=== PATIENT | female | born 1960 | race Caucasian/White ===

== ENCOUNTER 2018-12-10 21:34 | Inpatient (IN) | payer OTHER ==
[~2018-12-10] VITALS: Ht 162.6 cm; Wt 82.3 kg
--- NOTE | 2018-12-10 21:58 | NUR ---
MS/RN OPENING NOTES YASMIN JONAS OUTPATIENT SURGERY RN AT BEDSIDE FOR ASSESSMENT
[2018-12-10 22:00] VITALS: BP 155/87
--- NOTE | 2018-12-10 22:00 | NUR ---
MS/RN OPENING NOTES PT RECEIVED, DIRECT ADMIT FROM [facility]. A/OX4. ON ROOM AIR, BREATHING EVEN AND UNLABORED. DENIES SOB AND PAIN AT THIS TIME. IV TO RAC PATENT AND INTACT. BELONGINGS LIST COMPLETED. DENIES HOME MEDS. ORIENTED PT TO ROOM AND CALL LIGHT. BED IN LOW/LOCKED POSITION WITH CALL LIGHT IN REACH. BILATERAL UPPER SIDE RAILS IN PLACE. WILL CONTINUE TO MONITOR
[2018-12-10] MEDS ORDERED: ACETAMINOPHEN 325 MG TABLET PO PRN (22:30)
[2018-12-10] MEDS ORDERED: MAG HYDROX/AL HYDROX/SIMETH 30 ML UDC PO PRN (22:30)
[2018-12-10] MEDS ORDERED: DEXTROSE 50%-WATER 50 ML DISP.SYRIN IV PRN (22:30)
[2018-12-10] MEDS ORDERED: HYDROCODONE/APAP 10/325MG 1 EA TABLET PO PRN (22:30)
[2018-12-10] MEDS ORDERED: ONDANSETRON HCL/PF 4 MG/2 ML VIAL IVP PRN (22:30)
[2018-12-10] MEDS ORDERED: TEMAZEPAM 15 MG CAPSULE PO PRN (22:30)
[2018-12-10] MEDS ORDERED: HYDROCODONE/APAP 5/325MG 1 EACH TABLET PO PRN (22:30)
[2018-12-10] MEDS ORDERED: MAGNESIUM HYDROXIDE 30 ML UDC PO PRN (22:30)
--- NOTE | 2018-12-11 00:22 | NUR ---
MS/RN NOTES SPOKE TO JOSE M FROM [facility] TO CLARIFY SCHEDULED 0100 1GM VANCOMYCIN ORDER. INFORMED PHARMACY THAT PT RECEIVED 0.75GM AT 1604 ON 12/10/18 AT [facility]. REVIEWED BUN/CR. PER PHARMACY, OKAY TO GIVE SCHEDULED 0100 1GM VANCO DOSE
[2018-12-11] MEDS ORDERED: VANCOMYCIN 1 GM VIAL ONE (00:55)
[2018-12-11] MEDS ORDERED: VANCOMYCIN 1 GM in IV D5W 250ml IV SCH (01:00)
[2018-12-11] MEDS: IV NS 0.9% 1,000 ML IV PRN (01:04)
[2018-12-11 06:32] LABS: BASOPHILS % (AUTO) 0.7 % (0.0-2.0); EOSINOPHILS % (AUTO) 1.6 % (0.0-6.0); HEMATOCRIT 38 % (33-45); LYMPHOCYTES # (AUTO) 1.9 /CMM (0.8-4.8); LYMPHOCYTES % (AUTO) 39.8 % (20.0-44.0); MEAN CORPUSCULAR HGB CONC 34 g/dl (31.0-36.0); MEAN CORPUSCULAR VOLUME 83 fL (82-100); MONOCYTES # (AUTO) 0.5 /CMM (0.1-1.30); MONOCYTES % (AUTO) 11.7 % (2.0-12.0); NEUTROPHILS # (AUTO) 2.2 /CMM (1.8-8.9); NEUTROPHILS % (AUTO) 46.2 % (43.0-81.0); PLATELET COUNT (AUTO) 285 /CMM (150-450); RED BLOOD CELL COUNT(AUTO) 4.63 MIL/uL (4.0-5.2); WHITE BLOOD COUNT (AUTO) 4.7 K/uL (4.3-11.0)
[2018-12-11 06:41] LABS: CALCIUM, SERUM 8.7 mg/dL (8.5-10.1); CREATININE 0.5 mg/dL (0.6-1.3); MAGNESIUM 1.8 mg/dL (1.8-2.4); PHOSPHORUS 3.5 mg/dL (2.5-4.9); POTASSIUM 3.8 mmol/L (3.5-5.1)
[2018-12-11] MEDS: BLOOD SUGAR DIAGNOSTIC 1 EACH STRIP IN SCH ×2 (06:57→11:58)
[2018-12-11] MEDS ORDERED: FEE PK DOSING 1 MIN EA MC ONE (07:08)
[2018-12-11] MEDS: INSULIN REGULAR, HUMAN 100 UNIT/ML 3 ML VIAL SQ PRN ×3 (07:14→17:34)
[2018-12-11] MEDS: PANTOPRAZOLE 40 MG TABLET.DR PO SCH (07:30)
[2018-12-11] MEDS ORDERED: IBUP-1492 PO (07:46)
--- NOTE | 2018-12-11 07:58 | NUR ---
MS/RN CLOSING NOTES PT AWAKE, RESTING COMFORTABLY IN BED. OVERWHELMED WITH NEW INFORMATION REGARDING DM AND PLAN OF CARE WHILE IN HOSPITAL. EMOTIONAL SUPPORT PROVIDED AND GAVE GENERAL IDEA OF PLAN OF CARE. ENCOURAGED TO ASK MD QUESTIONS DURING ROUNDS. IV TO RAC REMAINS PATENT AND INTACT RUNNING IVF ORDERED. DRESSING TO LEFT 2ND TOE C/D/I. NO SIGNIFICANT CHANGES OVERNIGHT. ALL NEEDS MET. BED REMAINS IN LOW/LOCKED POSITION WITH CALL LIGHT IN REACH. HOB ELEVATED. BILATERAL UPPER SIDE RAILS IN PLACE. ENDORSED TO DAY SHIFT RN JULIANA.
[2018-12-11 08:00] VITALS: BP 150/101
--- NOTE | 2018-12-11 08:00 | NUR ---
RN NOTES PATIENT A/OX4, BREATHING EVEN AND UNLABORED, NO SOB NOTED, NEEDS ATTENDED AND MET, CALL LIGHT WITHIN REACH, WILL CONTINUE TO MONITOR.
[2018-12-11] MEDS: METFORMIN 500 MG TABLET PO SCH ×2 (08:28→16:57)
[2018-12-11 08:30] LABS: THYROID STIMULATING HORMONE 1.71 uIU/mL (0.358-3.74)
[2018-12-11] MEDS: VANCOMYCIN 1.25 GM in IV D5W 500 ML IV SCH (12:01)
--- NOTE | 2018-12-11 13:00 | NUR ---
S/P DEBRIDEMENT TODAY ON LEFT FOOT WITH DR. GARCIA, RECEIVED ORDER FOR WOUND TREATMENT ORDER, WBAT, TO APPLY POST OP SHOE AND TO RE-SEND CULTURE ON LEFT FOOT. ORDER NOTED AND CARRIED OUT. PHOTO TAKEN AND PLACED IN CHART. XRAY ON LEFT FOOT CANCELLED DR. GARCIA USED THE CD FROM [facility].
[2018-12-11] MEDS ORDERED: *INSULIN REGULAR(HUMULIN R)HUM 100 UNIT/ML VIAL SQ PRN (13:30)
[2018-12-11] MEDS ORDERED: DEXTROSE 50%-WATER 50 ML DISP.SYRIN IV PRN (13:30)
[2018-12-11 16:00] VITALS: BP 168/88
[2018-12-11] MEDS: BLOOD SUGAR DIAGNOSTIC 1 EACH STRIP VI SCH ×2 (17:34→21:06)
[2018-12-11] MEDS: CLONIDINE HCL 0.1 MG TABLET PO ONE ×2 (18:59→22:07)
--- NOTE | 2018-12-11 19:40 | NUR ---
RN NOTES ATTEMPTED TO GIVE CLONIDINE, PATIENT REFUSED, EXPLAINED ACTION AND SIDE EFFECTS. PATIENT STILL WANTS TO THINK ABOUT IT.
--- NOTE | 2018-12-11 19:41 | NUR ---
RN INITIAL NOTES: RECEIVED REPORT FROM [facility]. OPT IN BED, AT BED SIDE. PT UNDECIDED TO TAKE CLONIDINE, CURRENTLY ANXIOUS, BP ELEVATED. SPOKE WITH THE PT AND ENCOURAGE TO CALM DOWN AND RELAX, AND WILL RECHECK BP AGAIN IN AN HOUR. IV ACCESS PATENT AND FLUSHING WELL, REFUSING FOR IVF AT THIS TIME. EDUCATION PROVIDED TO THE PT. SAFETY PRECAUTION FOR FALL INITIATED, CALL LIGHT IN REACH, WILL CONTINUE TO MONITOR.
[2018-12-11 20:00] VITALS: BP 180/91
--- NOTE | 2018-12-11 20:30 | NUR ---
RN NOTES: PT REFUSED USING POST OP SHOE, STATED SHE'S UNCOMFORTABLE, AND SHE WILL GO TO SLEEP SOON AND DOES NOT WANT TO WEAR THE SAID SHOE.
[2018-12-11 20:57] VITALS: BP 149/92
--- NOTE | 2018-12-11 20:58 | NUR ---
RN NOTES: RECHECK PT'S VS, BP 149/92, HR 78 PT REFUSING TO TAKE BP MEDS, CLONIDINE, STATED SHE FELT MORE RELAXED AND CLAM AND NOT FEELING THE NEED TO TAKE THE SAID MEDICATION.
--- NOTE | 2018-12-11 21:43 | NUR ---
ACCU CHECK 252: BLOOD SUGAR PERFORMED RESULT OBTAINED 252, 6UNITS OF INSULIN GIVEN PER SLIDING SCAKLE, WILL MONITOR FOR ANY S/S OF HYPOGLYCEMIA
[2018-12-12] MEDS: VANCOMYCIN 1.25 GM in IV D5W 500 ML IV SCH ×2 (00:47→13:12)
[2018-12-12] MEDS: IV NS 0.9% 1,000 ML IV PRN (00:58)
[2018-12-12] MEDS: BLOOD SUGAR DIAGNOSTIC 1 EACH STRIP VI SCH ×3 (06:32→17:33)
[2018-12-12] MEDS: INSULIN REGULAR, HUMAN 100 UNIT/ML 3 ML VIAL SQ PRN ×2 (06:38→12:13)
--- NOTE | 2018-12-12 07:14 | NUR ---
RN CLOSING NOTES: PT IN BED, DENIES ANY PAIN OR DISCOMFORT AT THIS TIME, IV ACCESS REMAINS PATENT AND FLUSHING WELL, INFUSING WITH NS AT 75ML/HR. VS REMAINS STABLE, NEEDS ATTENDED. SAFETY PRECAUTIONS FOR FALL REMAINS ENGAGED, CALL LIGHT IN REACH WILL ENDORSE TO DAY RN FOR CONTINUITY OF CARE.
[2018-12-12] MEDS: PANTOPRAZOLE 40 MG TABLET.DR PO SCH (07:30)
[2018-12-12 08:00] VITALS: BP 154/97
--- NOTE | 2018-12-12 08:10 | NUR ---
RN NOTES PATIENT A/OX4, BREATHING EVEN AND UNLABORED, NO SOB NOTED, HAD A LONG DISCUSSION WITH PATIENT RE: METFORMIN, AND LISINOPRIL, RISKS AND BENEFITS AND SIDE EFFECTS. PATIENT STILL WANTS TO THINK ABOUT IT. NEEDS ATTENDED, CALL LIGHT WITHIN REACH, WILL CONTINUE TO MONITOR.
[2018-12-12] MEDS ORDERED: LISI5TAB45 PO (08:32)
[2018-12-12] MEDS ORDERED: CIPR500T5 PO (08:32)
[2018-12-12] MEDS ORDERED: METF-440 PO (08:32)
[2018-12-12] MEDS ORDERED: SULF1TAB48 PO (08:32)
[2018-12-12 08:35] LABS: BASOPHILS % (AUTO) 0.4 % (0.0-2.0); EOSINOPHILS % (AUTO) 1.2 % (0.0-6.0); HEMATOCRIT 43 % (33-45); HEMOGLOBIN 14.4 g/dL (11.5-14.8); LYMPHOCYTES # (AUTO) 1.8 /CMM (0.8-4.8); MEAN CORPUSCULAR HGB CONC 33 g/dl (31.0-36.0); MEAN CORPUSCULAR VOLUME 84 fL (82-100); MONOCYTES # (AUTO) 0.5 /CMM (0.1-1.30); MONOCYTES % (AUTO) 12.1 % (2.0-12.0); NEUTROPHILS # (AUTO) 1.9 /CMM (1.8-8.9); NEUTROPHILS % (AUTO) 44.3 % (43.0-81.0); PLATELET COUNT (AUTO) 308 /CMM (150-450); RED BLOOD CELL COUNT(AUTO) 5.19 MIL/uL (4.0-5.2); WHITE BLOOD COUNT (AUTO) 4.4 K/uL (4.3-11.0)
[2018-12-12 08:52] LABS: CALCIUM, SERUM 9.5 mg/dL (8.5-10.1); CREATININE 0.6 mg/dL (0.6-1.3); MAGNESIUM 1.9 mg/dL (1.8-2.4); PHOSPHORUS 3.8 mg/dL (2.5-4.9); POTASSIUM 3.7 mmol/L (3.5-5.1)
[2018-12-12] MEDS ORDERED: LISINOPRIL (5MG) 5 MG TABLET PO SCH (09:00)
[2018-12-12] MEDS: METFORMIN 500 MG TABLET PO SCH ×2 (09:00→17:00)
--- NOTE | 2018-12-12 17:13 | NUR ---
RN NOTES PATIENT REFUSED ALL MEDICATIONS, EXPLAINED RISKS AND BENEFITS, STILL REFUSED. SILVAI DEL TORO AWARE.
--- NOTE | 2018-12-12 17:40 | NUR ---
RN NOTES PATIENT REFUSED INSULIN COVERAGE, SHE SAID SHE'S GOING TO EAT AT HOME. EXPLAINED RISKS AND BENEFITS, AT BEDSIDE. PATIENT IS READY FOR DISCHARGE, WOUND TREATMENT RENDERED, SKIN ASSESSMENT DONE, PHOTOS TAKEN AND PLACED IN CHART. DISCHARGE INSTRUCTIONS PROVIDED AND PATIENT VERBALIZED UNDERSTANDING, PATIENT HAD A LOT OF QUESTIONS RE: MONITORING OF BLOOD SUGAR AND BLOOD PRESSURE, EDUCATED PATIENT AND SAID SHE UNDERSTANDS. BELONGINGS RECONCILED AND COMPLETE. NEEDS ATTENDED AND MET, POST OP SHE IN PLACED, PATIENT ASSISTED TO THE CAR VIA WHEELCHAIR. LEFT IN STABLE CONDITION.
== END 2018-12-12 17:40 | disposition home or self-care (01) | DRG 623 ==
LOC: MEDSG2 21:34
PROVIDERS: ADMIT Nurse Practitioner Acute Care; ATTEND Registered Nurse
PROC: 0JBR0ZZ Excision of Left Foot Subcutaneous Tissue and Fascia, Open Approach (ICD-10-PCS; principal; 2018-12-11)
DX: E11.69 Type 2 diabetes mellitus with other specified complication (principal); M86.9 Osteomyelitis, unspecified; R65.10 Systemic inflammatory response syndrome (SIRS) of non-infectious origin without acute organ dysfunction; E11.621 Type 2 diabetes mellitus with foot ulcer; L03.032 Cellulitis of left toe; E66.9 Obesity, unspecified; E11.42 Type 2 diabetes mellitus with diabetic polyneuropathy; Z68.31 Body mass index [BMI] 31.0-31.9, adult; Z98.890 Other specified postprocedural states; E78.5 Hyperlipidemia, unspecified; I10 Essential (primary) hypertension; B35.1 Tinea unguium; E88.81 Metabolic syndrome and other insulin resistance; L97.529 Non-pressure chronic ulcer of other part of left foot with unspecified severity
CPT/HCPCS: 36415; 80048-TC; 80061-TC; 80202-TC; 82962-TC; 83735-TC; 84100-TC; 84443-TC; 85025-TC; 85652-TC; 87070-TC; 87081-TC; A6402; G0378; J1815; J3370; J7030; J7060